=== PATIENT | female | born 1995 | race Caucasian/White ===

== ENCOUNTER 2018-09-06 14:30 | Inpatient (IN) | END 2018-09-08 09:45 | disposition other institution (70) | DRG 895 | DX: F10.230 Alcohol dependence with withdrawal, uncomplicated (principal); F12.10 Cannabis abuse, uncomplicated; Y90.6 Blood alcohol level of 120-199 mg/100 ml; E87.6 Hypokalemia; F41.1 Generalized anxiety disorder; R74.0 Nonspecific elevation of levels of transaminase and lactic acid dehydrogenase [LDH]; R94.6 Abnormal results of thyroid function studies; F32.9 Major depressive disorder, single episode, unspecified ==

== ENCOUNTER 2019-06-10 18:35 | Emergency (ER) | payer BC, OTHER ==
[~2019-06-10] VITALS: Ht 175.3 cm; Wt 72.6 kg
[~2019-06-10 18:35] MED LIST: ACET-2154 PO; CLON0.1T14 PO; DIPH50CA37 PO; SERT100T12 PO
[2019-06-10] MEDS ORDERED: TRAZ150T75 PO (18:51)
[2019-06-10] MEDS ORDERED: PROP10TA10 PO (18:51)
[2019-06-10] MEDS ORDERED: ESCI20TA PO (18:51)
[2019-06-10] MEDS ORDERED: ESOM20CA PO (18:51)
[2019-06-10] MEDS ORDERED: GABA600T12 PO (18:51)
[2019-06-10] MEDS ORDERED: [UNRECOGNIZED DRUG - OTHER] (18:51)
--- NOTE | 2019-06-10 19:04 | NUR ---
DR RODRIGUEZ at bedside for MSE.
[2019-06-10] MEDS ORDERED: ONDANSETRON 4 MG/2 ML VIAL IV ONE (19:15)
[2019-06-10] MEDS ORDERED: LORAZEPAM 2 MG/1 ML VIAL IV ONE (19:15)
[2019-06-10] MEDS ORDERED: IV NORMAL SALINE 1000 ML BAG IV ONE (19:15)
[2019-06-10 19:25] LABS: BASOPHILS # (AUTO) 0.1 K/uL (0.0-8.0); BASOPHILS % (AUTO) 0.6 % (0.0-2.0); EOSINOPHILS # (AUTO) 0.2 K/uL (0.0-0.7); HEMATOCRIT 47.4 % (31.2-41.9); HEMOGLOBIN 16.3 g/dL (10.9-14.3); LYMPHOCYTES # (AUTO) 2.2 K/uL (20.0-40.0); LYMPHOCYTES % (AUTO) 18.2 % (20.5-51.5); MEAN CORPUSCULAR HEMOGLOBIN 31.4 uug (24.7-32.8); MEAN CORPUSCULAR HGB CONC 34 g/dL (32.3-35.6); MEAN CORPUSCULAR VOLUME 91.4 fL (75.5-95.3); MONOCYTES % (AUTO) 8.2 % (0.0-11.0); NEUTROPHILS # (AUTO) 8.8 K/uL (1.8-8.9); PLATELET COUNT (AUTO) 296 K/uL (179-408); RED BLOOD CELL COUNT(AUTO) 5.19 MIL/uL (3.63-4.92); WHITE BLOOD COUNT (AUTO) 12.4 K/uL (3.8-11.8)
[2019-06-10] MEDS ORDERED: ONDANSETRON 4 MG/2 ML VIAL ONE (19:29)
[2019-06-10 19:31] LABS: CREATININE 0.8 mg/dL (0.6-1.3); POTASSIUM 3.7 mmol/L (3.5-5.1)
[2019-06-10] MEDS ORDERED: LORAZEPAM 2 MG/1 ML VIAL ONE (19:31)
[2019-06-10 19:37] LABS: BILIRUBIN,TOTAL 0.4 mg/dL (0.2-1.0)
--- NOTE | 2019-06-10 20:27 | NUR ---
DR RODRIGUEZ AT BEDSIDE MADE PATIENT AWARE OF TEST RESULTS WILL DC HOME
--- NOTE | 2019-06-10 20:29 | NUR ---
Patient discharged to home in stable conditon. Written and verbal after care instructions given. Patient verbalizes understanding of instructions.
[2019-06-10 20:31] VITALS: BP 121/62
== END 2019-06-10 20:33 | disposition home or self-care (01) ==
LOC: ER 18:41
DX: R11.2 Nausea with vomiting, unspecified (principal); F41.9 Anxiety disorder, unspecified; H53.149 Visual discomfort, unspecified; J45.909 Unspecified asthma, uncomplicated; Z79.899 Other long term (current) drug therapy
CPT/HCPCS: 36415; 80053; 83690; 84702; 85025; 93005; 96361; 96374; 96375; 99284; J2060; J2405; A4663; J7030

== ENCOUNTER 2019-06-11 08:17 | Emergency (ER) | payer BC ==
[~2019-06-11] VITALS: Ht 175.3 cm; Wt 83.9 kg
[~2019-06-11 08:17] MED LIST changes: -ACET-2154 PO; -CLON0.1T14 PO; -DIPH50CA37 PO; +ESCI20TA PO; +ESOM20CA PO; +GABA600T12 PO; +PROP10TA10 PO; -SERT100T12 PO; +TRAZ150T75 PO; +[UNRECOGNIZED DRUG - OTHER]
--- NOTE | 2019-06-11 08:32 | NUR ---
Dr Ward at the bedside for MSE.
[2019-06-11] MEDS ORDERED: METOCLOPRAMIDE HCL 10 MG/2 ML VIAL IV ONE (08:45)
[2019-06-11] MEDS ORDERED: PANTOPRAZOLE SODIUM 40 MG VIAL IV ONE (08:45)
[2019-06-11] MEDS ORDERED: LORAZEPAM 2 MG/1 ML VIAL IV ONE (08:45)
[2019-06-11] MEDS ORDERED: diphenhydrAMINE 50 MG/1 ML VIAL IV ONE (08:45)
[2019-06-11] MEDS ORDERED: IV NORMAL SALINE 1000 ML BAG IV ONE (08:45)
[2019-06-11] MEDS ORDERED: PANTOPRAZOLE SODIUM 40 MG VIAL ONE (08:47)
[2019-06-11] MEDS ORDERED: diphenhydrAMINE 50 MG/1 ML VIAL ONE (08:47)
[2019-06-11] MEDS ORDERED: METOCLOPRAMIDE HCL 10 MG/2 ML VIAL ONE (08:48)
[2019-06-11] MEDS ORDERED: LORAZEPAM 2 MG/1 ML VIAL ONE (08:49)
--- NOTE | 2019-06-11 09:18 | NUR ---
Patient is resting comfortably in bed with eyes closed, NAD noted.
--- NOTE | 2019-06-11 10:26 | NUR ---
IV removed. Catheter intact and site benign. Pressure and 4x4 gauze applied to site. No bleeding noted.
[2019-06-11 10:33] VITALS: BP 115/67
--- NOTE | 2019-06-11 10:34 | NUR ---
Patient discharged to home in stable conditon. Written and verbal after care instructions given. Patient verbalizes understanding of instructions.
== END 2019-06-11 10:34 | disposition home or self-care (01) ==
LOC: ER 08:17
DX: K52.9 Noninfective gastroenteritis and colitis, unspecified (principal); F41.9 Anxiety disorder, unspecified; J45.909 Unspecified asthma, uncomplicated; F32.9 Major depressive disorder, single episode, unspecified; Z90.89 Acquired absence of other organs; Z79.899 Other long term (current) drug therapy
CPT/HCPCS: 96361; 96374; 96375; 99283; C9113; J1200; J2060; J2765; A4663; J7030

== ENCOUNTER 2019-08-09 09:57 | Emergency (ER) | payer BC ==
[~2019-08-09] VITALS: Ht 175.3 cm; Wt 72.6 kg
--- NOTE | 2019-08-09 11:10 | NUR ---
Dr. Robertson at the bedside for MSE.
[2019-08-09] MEDS ORDERED: LORAZEPAM 2 MG/1 ML VIAL IV ONE (11:15)
[2019-08-09] MEDS ORDERED: IV NORMAL SALINE 1000 ML BAG IV ONE (11:15)
[2019-08-09] MEDS ORDERED: LORAZEPAM 2 MG/1 ML VIAL ONE (11:18)
[2019-08-09 11:49] LABS: BASOPHILS # (AUTO) 0.1 K/uL (0.0-8.0); BASOPHILS % (AUTO) 0.7 % (0.0-2.0); EOSINOPHILS # (AUTO) 0.2 K/uL (0.0-0.7); EOSINOPHILS % (AUTO) 1.8 % (0.0-7.0); HEMOGLOBIN 13.2 g/dL (10.9-14.3); MEAN CORPUSCULAR HEMOGLOBIN 31.1 uug (24.7-32.8); MEAN CORPUSCULAR HGB CONC 35 g/dL (32.3-35.6); MONOCYTES # (AUTO) 0.6 K/uL (2.0-10.0); MONOCYTES % (AUTO) 6.3 % (0.0-11.0); NEUTROPHILS # (AUTO) 6.2 K/uL (1.8-8.9); NEUTROPHILS % (AUTO) 69.2 % (38.5-71.5); PLATELET COUNT (AUTO) 230 K/uL (179-408); RED BLOOD CELL COUNT(AUTO) 4.22 MIL/uL (3.63-4.92)
[2019-08-09 11:59] LABS: CREATININE 0.8 mg/dL (0.6-1.3)
[2019-08-09 12:01] LABS: *BILIRUBIN,URIN NEGATIVE (NEGATIVE); *BLOOD, URINE NEGATIVE (NEGATIVE); *CLARITY,URINE CLEAR (CLEAR); *COLOR,URINE YELLOW (YELLOW); *KETONES,URINE NEGATIVE (NEGATIVE); *UROBILINOGEN,URINE 0.2 E.U./dl (NORMAL); LEUKOCYTE ESTERASE ,URINE NEGATIVE (NEGATIVE); NITRITE, URINE NEGATIVE (NEGATIVE); UGLUCOSE NEGATIVE (NEGATIVE)
[2019-08-09 12:05] LABS: BILIRUBIN,DIRECT 0.1 mg/dL (0.0-0.2); BILIRUBIN,TOTAL 0.5 mg/dL (0.2-1.0); TOTAL PROTEIN, SERUM 7.1 g/dL (6.4-8.2)
[2019-08-09] MEDS ORDERED: IV NORMAL SALINE 250 ML IV ONE (12:34)
[2019-08-09] MEDS ORDERED: IOHEXOL 300MG/ML 100 ML INFUS..BTL ONE (12:34)
[2019-08-09] MEDS ORDERED: SWABABLE VALVE TRANSFER SET EA MC ONE (12:34)
[2019-08-09] MEDS ORDERED: MORPHINE SULFATE 4 MG/1 ML DISP.SYRIN IV ONE ×2 (12:45→14:15)
[2019-08-09] MEDS ORDERED: ONDANSETRON 4 MG/2 ML VIAL IV ONE ×2 (12:45→14:15)
[2019-08-09] MEDS ORDERED: ONDANSETRON 4 MG/2 ML VIAL ONE ×2 (13:15→14:08)
[2019-08-09] MEDS ORDERED: MORPHINE SULFATE 4 MG/1 ML DISP.SYRIN ONE ×2 (13:15→14:07)
--- NOTE | 2019-08-09 14:19 | NUR ---
Patient discharged to home in stable conditon. Written and verbal after care instructions given. Patient verbalizes understanding of instructions. Addendum: 08/09/19 at 1420 by VAN PIV removed. Discharge prescriptions provided. Pt verbalized understanding.
== END 2019-08-09 14:20 | disposition home or self-care (01) ==
LOC: ER 09:57
DX: R11.2 Nausea with vomiting, unspecified (principal); R10.9 Unspecified abdominal pain; R19.7 Diarrhea, unspecified; J45.909 Unspecified asthma, uncomplicated; K21.9 Gastro-esophageal reflux disease without esophagitis; F41.9 Anxiety disorder, unspecified; F32.9 Major depressive disorder, single episode, unspecified; Z90.89 Acquired absence of other organs; Z79.899 Other long term (current) drug therapy
CPT/HCPCS: 36415; 71045; 74177; 80048; 80076; 81001; 83690; 84484; 84702; 85025; 96361; 96374; 96375; 96376; 99284; J2060; J2270 ×2; J2405 ×2; Q9967; 70030-TC; A4663; J7030; J7050

== ENCOUNTER 2019-08-10 22:19 | Emergency (ER) | payer BC ==
[~2019-08-10] VITALS: Ht 175.3 cm; Wt 72.6 kg
--- NOTE | 2019-08-10 22:35 | NUR ---
Dr. Rose at bedside for MSE
[2019-08-10] MEDS ORDERED: diphenhydrAMINE 25 MG CAP PO ONE ×2 (22:45→23:46)
[2019-08-10] MEDS ORDERED: METOCLOPRAMIDE HCL 10 MG/2 ML VIAL IV ONE (22:45)
[2019-08-10] MEDS ORDERED: IV NORMAL SALINE 1000 ML BAG IV ONE (22:45)
[2019-08-10] MEDS ORDERED: METOCLOPRAMIDE HCL 10 MG/2 ML VIAL ONE (22:54)
[2019-08-10 22:55] LABS: BASOPHILS # (AUTO) 0.1 K/uL (0.0-8.0); BASOPHILS % (AUTO) 0.7 % (0.0-2.0); EOSINOPHILS # (AUTO) 0.2 K/uL (0.0-0.7); EOSINOPHILS % (AUTO) 1.8 % (0.0-7.0); HEMATOCRIT 39.6 % (31.2-41.9); HEMOGLOBIN 13.7 g/dL (10.9-14.3); LYMPHOCYTES # (AUTO) 3.5 K/uL (20.0-40.0); LYMPHOCYTES % (AUTO) 37.2 % (20.5-51.5); MEAN CORPUSCULAR HEMOGLOBIN 31.4 uug (24.7-32.8); MEAN CORPUSCULAR HGB CONC 35 g/dL (32.3-35.6); MEAN CORPUSCULAR VOLUME 90.6 fL (75.5-95.3); MONOCYTES % (AUTO) 10.2 % (0.0-11.0); NEUTROPHILS # (AUTO) 4.8 K/uL (1.8-8.9); NEUTROPHILS % (AUTO) 50.1 % (38.5-71.5); PLATELET COUNT (AUTO) 245 K/uL (179-408); RED BLOOD CELL COUNT(AUTO) 4.37 MIL/uL (3.63-4.92); WHITE BLOOD COUNT (AUTO) 9.5 K/uL (3.8-11.8)
[2019-08-10 23:06] LABS: CREATININE 0.7 mg/dL (0.6-1.3); POTASSIUM 3.6 mmol/L (3.5-5.1)
[2019-08-10 23:19] LABS: BILIRUBIN,DIRECT 0.2 mg/dL (0.0-0.2); BILIRUBIN,TOTAL 0.4 mg/dL (0.2-1.0); TOTAL PROTEIN, SERUM 7.9 g/dL (6.4-8.2)
[2019-08-11] MEDS ORDERED: diphenhydrAMINE 50 MG/1 ML VIAL IV ONE (00:15)
[2019-08-11] MEDS ORDERED: IV D5W-LACTATED RINGE 1000 ML BAG IV ONE (00:15)
[2019-08-11] MEDS ORDERED: diphenhydrAMINE 50 MG/1 ML VIAL ONE (00:26)
[2019-08-11 00:42] LABS: *BILIRUBIN,URIN NEGATIVE (NEGATIVE); *BLOOD, URINE TRACE (NEGATIVE); *CLARITY,URINE CLEAR (CLEAR); *COLOR,URINE YELLOW (YELLOW); *KETONES,URINE NEGATIVE (NEGATIVE); LEUKOCYTE ESTERASE ,URINE NEGATIVE (NEGATIVE); NITRITE, URINE NEGATIVE (NEGATIVE); PH,URINE 8.5 (5.0-8.0); UGLUCOSE NEGATIVE (NEGATIVE)
[2019-08-11 00:44] LABS: *AMPHETAMINE, URINE NEGATIVE (NEGATIVE); *BARBITURATE, URINE NEGATIVE (NEGATIVE); *CANNABINOID, URINE NEGATIVE (NEGATIVE); *COCCAINE, URINE NEGATIVE (NEGATIVE); *OPIATE, URINE POSITIVE (NEGATIVE); *PHENCYCLIDINE SCREEN,URINE NEGATIVE (NEGATIVE)
[2019-08-11 00:50] LABS: BACTERIA,URINE FEW /HPF (NONE SEEN); SQUAMOUS EPITHELIAL CELL,UR MODERATE /HPF (NONE SEEN)
--- NOTE | 2019-08-11 01:55 | NUR ---
iv bolus COMPLETED AT 0155
--- NOTE | 2019-08-11 02:29 | NUR ---
Patient tolerated PO challenge with no N/V.
[2019-08-11 02:49] VITALS: BP 116/77
--- NOTE | 2019-08-11 02:49 | NUR ---
IV removed. Catheter intact and site benign. Pressure and 4x4 gauze applied to site. No bleeding noted.Patient discharged to home in stable conditon. Written and verbal after care instructions given. Patient verbalizes understanding of instructions. pt ambulating with steady gait with boyfriend at bedside
== END 2019-08-11 02:47 | disposition home or self-care (01) ==
LOC: ER 22:21
DX: R10.13 Epigastric pain (principal); R19.7 Diarrhea, unspecified; R11.10 Vomiting, unspecified; R82.71 Bacteriuria; J45.909 Unspecified asthma, uncomplicated; K21.9 Gastro-esophageal reflux disease without esophagitis; F41.9 Anxiety disorder, unspecified; F32.9 Major depressive disorder, single episode, unspecified; Z33.1 Pregnant state, incidental; Z90.89 Acquired absence of other organs; Z79.899 Other long term (current) drug therapy; Z3A.00 Weeks of gestation of pregnancy not specified
CPT/HCPCS: 36415 ×2; 76856; 80048; 80076; 80307; 81000; 81001; 82009; 83690; 84702; 85025; 96361 ×2; 96374; 96375; 99284; G0480; J1200; J2765; J3490; Q0163; A4663; J7030